=== PATIENT | male | born 1960 | race Caucasian/White ===

== ENCOUNTER 2016-05-01 18:06 | Emergency (ER) | payer OTHER ==
[~2016-05-01] VITALS: Ht 175.3 cm; Wt 83.9 kg
[~2016-05-01 18:06] MED LIST: AUGMENTIN 250 M1 TAB PO; MOTRIN800 MG PO
[2016-05-01 18:41] VITALS: BP 116/79
[2016-05-01] MEDS ORDERED: ACETAMINOPHEN EXTRA STRENGTH 500 MG TAB PO ONE (18:50)
[2016-05-01] MEDS ORDERED: NACL 0.9% 1,000 ML IV ONE (18:50)
--- NOTE | 2016-05-01 19:07 | NUR ---
PATIENT PRESENTS TO ED /o fever chills bodyache malaise-non productive cough x3 days--- DENIES N/V/D; SKIN IS PINK/WARM/DRY; AAOX4 WITH EVEN AND STEADY GAIT; LUNGS CLEAR BL; HR EVEN AND REGULAR;NO CHEST PAIN, TOOK SOME COUGH MEDICINE,PATIENT STATES PAIN OF 10/10 AT THIS TIME; PATIENT POSITIONED FOR COMFORT; HOB ELEVATED; BEDRAILS UP X2; BED DOWN. ER MD MADE AWARE OF PT STATUS.PT AAO, NO VOMITTING NOTED AT THIS TIME.
--- NOTE | 2016-05-01 19:11 | NUR ---
Pt report given to ROSALINDA. Transfer of care at this time.
--- NOTE | 2016-05-01 19:15 | NUR ---
CXR DONE AT BEDSIDE
[2016-05-01] MEDS ORDERED: AMPICILLIN/SULBACTAM 1.5 GM in NACL 0.9% 50 ML IV ONE (19:45)
--- NOTE | 2016-05-01 19:52 | NUR ---
FLU SWAB DONE
[2016-05-01] MEDS ORDERED: AMPICILLIN/SULBACTAM 1.5 GM VIAL ONE (19:58)
--- NOTE | 2016-05-01 20:15 | NUR ---
POSTIVE FLU REPORTED TO DR BARTLETT
[2016-05-01 20:45] VITALS: BP 129/85
--- NOTE | 2016-05-01 20:45 | NUR ---
DISCHARGED BY DR LUX
--- NOTE | 2016-05-01 20:45 | NUR ---
Patient discharged with v/s stable. Written and verbal after care instructions given and explained. Patient alert, oriented and verbalized understanding of instructions. Ambulatory with steady gait. All questions addressed prior to discharge. ID band removed. Patient advised to follow up with PMD. Rx of AUGMENTIN AND NAPROSYN given. Patient educated on indication of medication including possible reaction and side effects. Opportunity to ask questions provided and answered.
== END 2016-05-01 20:45 | disposition home or self-care (01) ==
LOC: MED 18:06
DX: J06.9 Acute upper respiratory infection, unspecified (principal); R03.0 Elevated blood-pressure reading, without diagnosis of hypertension; J45.909 Unspecified asthma, uncomplicated; Z88.6 Allergy status to analgesic agent
CPT/HCPCS: 36415; 71010; 80053; 82550; 82553; 84484; 85025; 87804; 93005; 96360; 99285; J0295; J7030; Q0092